=== PATIENT | female | born 1950 | race Caucasian/White ===

== ENCOUNTER 2018-09-20 09:50 | Day surgery (SDC) | payer BC, MEDICARE, OTHER, SELFPAY ==
[2018-09-20] VITALS (9 sets, daily range): BP systolic 134–172; BP diastolic 66–85; PULSE 64–70; RESP 16; TEMP 36.1–37.1; O2SAT 92–98; BMI 40.9
--- NOTE | 2018-09-20 | IMM_PTH ---
PATIENT: JULES ADORNO [place] [facility] [place][id number] AGE/SX: 68/F ROOM: RE09/20/[address]: Dr. Marjorie Alicia MD : 1950 BED: DIS: 09/20/2018 SPEC #: [id number] RECD: 09/22/18 14:00 STATUS: CORDELIA REQ #: [id number] RADHA: 09/20/18 00:[address]: Marjorie Alicia DEPT: IMMUNOHISTOCHEMISTRY RECD BY: Layla Corrales ENTERED: 09/22/18 14:02 SP TYPE: IMMUNO OTHR DR: Dr. Camille Crocker MD Tissues: A - Axillary lymph node, NOS B - Axillary lymph node, NOS C - Left breast, NOS Procedures: E-CAD (initial) CK7 (add) CK8 (add) E-CAD (add) Pankeratin (initial) PHYSICIAN & INSTITUTION [place] [id number] SPECIMEN INFORMATION: Tissue Source: A - Left sentinel lymph node, B - Left sentinel lymph node #2, C - Left breast mass Clinical Info: Malignant neoplasm upper-inner quadrant left breast Specimen Number: [id number] A1, B1, C3, C5, C6, C7 CPT code: 70268 x3, 94402 x13 METHODOLOGY: Deparaffinized sections of prefer/formalin-fixed tissue or PAP/DQ stained slides are incubated with monoclonal/polyclonal antibodies/oligonucleotide probes. Localization is made via biotin free immunoperoxidase method. Appropriate controls are performed and reacted as expected. Results on target cell population are indicated in the following table: RESULTS: ANTIBODY / CLONE RESULT Block A1 AE1-3 (AE1/AE3/PCK26) negative CK7 (OV-TL12/30) negative Block B1 AE1-3 (AE1/AE3/PCK26) negative CK7 (OV-TL12/30) negative Block C3 E-Cad (ECH-6) negative CK7 (OV-TL12/30) positive CK8 ([id number]) positive Block C5 E-Cad (ECH-6) negative CK7 (OV-TL12/30) positive CK8 (28pitqU38) positive Block C6 E-Cad (ECH-6) negative CK7 (OV-TL12/30) positive CK8 (32ookyQ93) positive Block C7 E-Cad (ECH-6) negative CK7 (OV-TL12/30) positive CK8 (96bdmfH47) positive These tests were developed and their performance characteristics determined by [facility]. They may not have been cleared or approved by the U.S. Food and Drug Administration. The FDA has determined that such clearance or approval is not necessary. INTERPRETATION: A. Left sentinel lymph node, biopsy: One lymph node, negative for metastatic carcinoma. B. Left sentinel lymph node #2, biopsy: One lymph node, negative for metastatic carcinoma. C. Left breast mass: Invasive lobular carcinoma. SJ:eddy 09/23/18
--- NOTE | 2018-09-20 11:14 | BI_ITS ---
SURGICAL BREAST SPECIMEN RADIOGRAPH CLINICAL: Document presence of mass in biopsy specimen. FINDINGS: Specimen shows presence of mass. Electronically Signed: Gus Alex MD at 15:38 EST Tel [phone], Service support , BI/Breast Biopsy Specimen
--- NOTE | 2018-09-20 12:00 | HP.PCM_ITS ---
History and Physical Date of Admission: 09/20/18 Yolanda Price 1950 ? ? REFERRING PHYSICIAN: Laura Simms MD ? CHIEF COMPLAINT: Mammogram Abnormality ? HPI: The patient is a 68 year old female presents with abnormal left breast mammograms and ultrasound. US findings of - 1.6 cm irregular lesion in the left breast 11:00. Patient denies palpable breast masses. Denies nipple dsicharge. Denies previous breast biopsies. She has noted lateral aspect of left breast with ache for years Mother had breast cancer dx'd at age 50 - Has no sisters. No ovarian cancer known in the family. ? Pathology for biopsy 09/09/18 - Invasive lobular carcinoma, nuclear grade 2. ? ? PAST MEDICAL HISTORY ? Acute gastritis without mention of hemorrhage ? ? Benign neoplasm of colon ? ? Chronic depressive personality disorder ? ? Contact dermatitis and other eczema, due to unspecified cause ? ? Diabetes mellitus with no complication (HCC) ? ? Diverticulosis of colon (without mention of hemorrhage) ? ? Duodenitis without mention of hemorrhage ? ? Dyspnea and respiratory abnormalities ? ? Esophageal reflux ? ? Esophagitis, unspecified ? ? Essential hypertension 02/08/2017 ? Gastro-esophageal reflux disease with esophagitis 05/04/2006 ? Internal hemorrhoids without mention of complication ? ? Internal hemorrhoids without mention of complication ? ? Mechanical ptosis of eyelid of both eyes 02/13/2016 ? Menorrhagia ? ? Myopia 01/09/2015 ? Obesity, unspecified ? ? Obstructive sleep apnea ? ? Other and unspecified hyperlipidemia ? ? Presbyopia 01/09/2015 ? Regular astigmatism 01/09/2015 ? RLS (restless legs syndrome) 11/18/2011 ? 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 Senile nuclear cataract 02/13/2016 ? Senile nuclear sclerosis 01/09/2015 ? Unspecified asthma(493.90) ? ? Unspecified hemorrhoids without mention of complication ? ? Unspecified hypothyroidism ? ? PAST SURGICAL HISTORY ? COLONOSCOP W/ OR W/O BRSH SPEC ? 07/20/07 ? COLONOSCOP W/ OR W/O BRSH SPEC ? 03/20/13 ? COLONOSCOPY ? 06/13/04 polyp ? D&C DIAG &/OR THERAP, NOT OB ? 08/26 ? EGD W/O OR W/BRUSH/WASH ? 06/13/04 ? EGD W/O OR W/BRUSH/WASH ? 03/20/13 ? PAST SURGICAL HISTORY OF ? 10/28/2006 novasure ? PHOTOREFRACTIVE KERATECOMY Left 03/05/2017 ? PTK Left ? ? REVISE MEDIAN N/CARPAL TUNNEL SURG ? Carpal tunnel, both hands ? SKIN LESION BIOPSY ? 01/2011? on tip of nose ? ? Current Outpatient Prescriptions: miSOPROStol (CYTOTEC) 200 mcg tablet 2 tablets as directed. Take 2 tabs the night before & 2 tabs the morning of the procedure - vaginally. diclofenac sodium (PENNSAID) 20 mg/gram /actuation(2 %) sopm Apply 1 Bottle to affected area twice daily. atorvastatin (LIPITOR) 20 mg tablet Take 0.5 tablets by mouth daily at bedtime. omeprazole (PRILOSEC) 20 mg capsule Take 1 capsule by mouth daily before breakfast. metFORMIN (GLUCOPHAGE) 500 mg tablet Take 1 tablet by mouth twice daily with meals. levothyroxine (SYNTHROID) 150 mcg tablet Take 1 tablet by mouth once daily. blood sugar diagnostic (ONETOUCH ULTRA TEST) test strip Test blood sugar(s) 2 times daily. Dx: Type 2 DM - Uncontrolled E11.65 Insulin: No Blood-Glucose Meter (ONETOUCH ULTRA2) monitoring kit 1 Each as neede d. One Touch Meter Kit Diagnosis: Type 2 DM - Uncontrolled E11.65 lancets (ONE TOUCH DELICA) 33 gauge misc Test blood sugar(s )2 daily. Dx: Type 2 DM - Uncontrolled E11.65 Insulin: No blood sugar diagnostic (ACCU-CHEK BELLA) test strip Use as instructed Lancets (ACCU-CHEK SOFTCLIX LANCETS) lancets Use as instructed PROPYLENE GLYCOL/PEG 400 (BLINK TEARS LUBRICATING) Eye Drops Use in both eyes. HYPROMELLOSE (SYSTANE GEL OPHTHALMIC) Use in eyes. cholecalciferol, Vitamin D3, (VITAMIN D3) 50,000 unit cap capsule Take 1 capsule by mouth once each week. Take 1 every 2 weeks magnesium oxide (MAG-OX) 400 mg tablet Take 1 tablet by mouth once daily. aspirin, enteric coated (ASPIRIN, ENTERIC COATED) 81 mg EC tablet Take 1 tablet by mouth once daily. Psyllium Husk (METAMUCIL) 0.52 g ORAL Cap as necessary ? ? ALLERGIES: Vicodin [Hydrocodone-Acetaminophen] ? 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 FAMILY HISTORY ? Lipids Father ? ? Cancer Father ? ? Skin Cancer ? other (Atrial Fibrillation [Other]) Father ? ? Hypertension Father ? ? Breast Cancer Mother ? ? age 50 ? Lipids Brother ? ? X-2 High Cholesterol ? Diabetes Paternal Grandmother ? ? ? REVIEW OF SYSTEMS: General: The patient denies fatigue, denies weight loss, NOTES weight gain, NOTES feeling hot, and denies feelings of cold. Eyes: The patient denies glaucoma, denies eye injury/surgery, wears glasses or contacts. Ear/Nose/Throat: The patient denies allergies, denies hayfever, denies ear infections, and denies bloody noses. Cardiovascular: The patient denies chest pain, denies heart disease, denies high blood pressure,denies cardiac stent, denies prior heart attack, denies irregular heart beat, NOTES high cholesterol, denies poor circulation, denies heart failure, other cardiac issues, denies claudication, denies cold feet, denies peripheral arterial stent. Respiratory: The patient denies tuberculosis, denies pneumonia, denies frequent cough, denies pulmonary embolism, denies shortness of breath, and denies coughing up blood. Gastrointestinal: The patient NOTES difficulty swallowing, NOTES acid reflux, denies ulcers, denies vomiting, denies jaundice/hepatitis, denies gallbladder problems, denies black or tarry stools, denies hemorrhoids, denies bleeding from rectum, denies diverticulitis, NOTES constipation, denies diarrhea, denies loss of stool control, and denies hernias. Kidney/Bladder: The patient denies kidney stones, denies urine infections, and denies bloody urine. Skin: The patient denies a history of skin cancer, denies bleeding/changing moles, and denies a history of skin rash. Neurologic: The patient denies a history of epilepsy/convulsions, NOTES headaches, denies head/spinal injuries, and denies stroke/TIA. Psychiatric: The patient denies psychiatric medications, denies depression, and denies voices, denies substance abuse. Endocrine: The patient NOTES thyroid disorders, NOTES diabetes, and denies hormonal problems. Hematologic: The patient denies a history of bruising, denies bleeding, and denies anemia, denies blood clots. Infections: The patient denies a history of measles and mumps, denies rheumatic fever, and denies sexually transmitted diseases. Musculoskeletal: The patient denies back pain/injury, denies back problems, denies sciatica, NOTES knee/foot trouble, NOTES arthritis, or denies gout. Obstetrical: menarche onset at age 11/12, , first at age 42, breast feeding 2m, BCP use initially 20s for 1-2 y, menopause late 50s, last menstrual period 09/14/2010 ? PHYSICAL EXAMINATION: General: The patient is 68 year old female, well nourished, well hydrated in no acute distress. The patient is oriented to time, place, and person. VITALS: Blood pressure 156/80, pulse 68, weight 113.4 kg (250 lb), Ht: 5'5 Body mass index is 41.6 kg/m?. Head ? Normocephalic. EOM intact with sclera clear and no icterus noted. Mouth with mucus membranes moist. Neck - supple with no jugular venous distention noted. Trachea is midline. No carotid bruits noted. No thyroid enlargement or thyroid nodules detected. No masses noted. Chest/breast ? no asymmetry of breasts noted, no suspicious skin lesions noted, no nipple discharge and both nipples everted, nodular dense breast tissue palpated bilaterally, no suspicious lesions palpated Lungs ? clear to auscultation. Normal breath sounds. No rales/rhonchi/wheezing noted. No labored breathing noted, such as retractions. . Heart ? normal S1 and S2 auscultated. No rubs/clicks/murmurs noted. Regular rate. Abdomen ? soft and benign. Normal bowel sounds. No abdominal bruits noted. Difficult to determine if any masses or organomegaly due to body habitus. Extremities ? no calf tenderness noted. Bilateral dependent swelling, No pitting edema noted. Skin ? normal skin integrity. Lymph ? no cervical adenopathy detected, no supraclavicular adenopathy detected, no axillary adenopathy detected Neurological ? gait normal, no focal deficits noted Psych ? calm and appropriate RADIOLOGIC STUDIES: As Noted ? ? IMPRESSION: newly diagnosed left breast cancer ? PLAN: I have discussed the above with the patient. I have given the patient options for initial surgical treatment. Options are the following: lumpectomy followed by radiation therapy versus mastectomy. I have described the procedures to the patient. I have described the advantages and disadvantages of the options, but I have told the patient that among the options, the survival rate for breast cancer is the same. I have told the patient that with all of the surgeries that a sentinel lymph node biopsy is required. I have described the procedure of sentinel lymph node biopsy to the patient. I have told the patient that if the biopsy is positive for metastatic disease, then radiation therapy to the axilla will be required. I have told the patient that adjuvant chemotherapy will be required should the lymph nodes reveal metastatic disease. I have told the patient the risks of surgery, including but not limited to: infection, bleeding, scar tissue, seroma and persistent seroma, lymph leak, injury to any blood vessels, injury to any nerves (particularly the long thoracic, the thoracodorsal, and the second intercostal brachial and the resultant sequelae), lymphedema, cosmetic deformity, dysthesias, wound infections, further surgery (especially if margins are not clear), complications of anesthesia, etc. ? the patient understands. She wishes to proceed with lumpectomy followed by radiation therapy. I have answered all the patient?s questions at this point to her satisfaction and she has no further questions. . ?
--- NOTE | 2018-09-20 13:00 | AXNB_PTH ---
PATIENT: JULES ADORNO [place]: [facility] [place] [facility] [place][id number] AGE/SX: 68/F ROOM: RE09/20/[address]: Dr. Marjorie Alicia MD : 1950 BED: DIS: 09/20/2018 SPEC #: [id number] RECD: 09/20/18 14:17 STATUS: CORDELIA REJavier #: [id number] RADHA: 09/20/18 13:[address]: Marjorie Alicia DEPT: SURGICAL PATHOLOGY RECD BY: Layla Corrales ENTERED: 09/21/18 09:03 SP TYPE: AX NODE BX OTHR DR: Dr. Camille Crocker MD Tissues: A - Axillary lymph node, NOS B - Axillary lymph node, NOS C - Left breast, NOS D - Left breast, NOS Procedures: Frozen Section (charge) [facility]zen [facility] Surgery Specimen Level IV Surgery Specimen Level V Frozen (no charge) HEADER OPERATION: Breast lumpectomy, SN with Neoprobe, needle localization, frozen section PRE-OP DIAGNOSIS: Malignant neoplasm of upper-inner quadrant of left breast, ER positive TISSUE SUBMITTED: A - Left sentinel node, FS at 1412, B - Left sentinel node #2, FS at 1425, C - Left breast mass, long stitch lateral, short stitch superior, two short stitches medial sent to mammography then to lab at 1519, D - Left breast tissue sent to mammography then lab at 1619 FROZEN SECTION DIAGNOSIS A. Left sentinel lymph node, biopsy: One lymph node, negative for metastatic carcinoma. B. Left sentinel lymph node #2, biopsy: One lymph node, negative for metastatic carcinoma. C. Left breast mass: Biopsy cavity changes. No carcinoma noted. Case has been reviewed in consultation with Dr. Mauricio who concurs with the above diagnosis. IDC:AM BRITTNI:eddy 09/20/18 MICROSCOPIC DIAGNOSIS A. Left sentinel lymph node, biopsy: One lymph node, negative for metastatic carcinoma. See comment. B. Left sentinel lymph node #2, biopsy: One lymph node, negative for metastatic carcinoma. See comment. C. Left breast mass, lumpectomy with needle localization: Invasive lobular carcinoma. See cancer summary below. D. Left breast: Negative for carcinoma. SJ:eddy 09/23/18 INVASIVE BREAST CANCER SUMMARY: Specimen - partial breast Procedure - excision with wire-guided localization Lymph node sampling - sentinel lymph nodes Specimen integrity - multiple designated specimens (main excision and additional left breast tissue) Specimen size - - specimen C, lumpectomy - 9 x 7 x 5 cm - additional breast tissue 4.5 x 3 x 1 cm Specimen laterality - left Tumor site - upper inner quadrant as per clinical information Tumor size - 1.5 cm in greatest dimension (measured microscopically) . See comment. Tumor focality - single focus of invasive carcinoma Macroscopic and Microscopic extent of tumor: Skin - skin is not present. Nipple - not applicable Skeletal muscle - no skeletal muscle present. Ductal carcinoma in situ (DCIS) - no ductal carcinoma in situ present. Lobular carcinoma in situ (LCIS) - not identified Histologic type of invasive carcinoma - invasive and lobular carcinoma Histologic Grade (Marivel grade): Glandular/tubular differentiation - score 3 Nuclear pleomorphism - score 1 Mitotic count - score 1 Overall grade - 1 (score of 5) Margins - Margins uninvolved by invasive carcinoma. Invasive carcinoma is 0.3 cm away from anterior margin and 0.2 cm away from the medial margin. Treatment effect: Response to presurgical (neoadjuvant) therapy - no known presurgical therapy. Lymph-Vascular invasion - not identified Dermal lymph-vascular invasion - not applicable Lymph nodes: Number of sentinel lymph nodes examined - 2 Total number of lymph nodes examined (sentinel and nonsentinel) - 2 Number of lymph nodes with macrometastases, micrometastases and isolated tumor cells - 0 Method of evaluation of sentinel lymph nodes - H & E, multiple levels and IHC. Distant metastasis - not applicable Additional pathologic findings - changes consistent with previous biopsy site. Focal atypical lobular hyperplasia. Ancillary studies - previously performed on [facility] specimen ([id number]) ER - positive (>95%, strong) MN - positive (90%, moderate) Her2 jacey - negative (1+) Microcalcifications - not identified Clinical history - Please make reference to previous specimen from [facility] ([id number]) right breast, needle core biopsy with diagnosis of invasive lobular carcinoma. PATHOLOGIC STAGE: pT1c pN0(sn) Mx The above summary is in compliance with [employer] (CAP) Cancer Protocols Checklist and [place] Joint Committee on Cancer (AJCC), Staging Manual, 8th Ed. COMMENT A & B. The lymph nodes are negative for metastatic carcinoma on multiple H & E levels and immunohistochemical stains for cytokeratins ([id number]). C - Immunohistochemistry ([id number]) supports the above diagnosis. The tumor is smaller than the grossly identified indurated area. Grossly indentified also consists of biopsy-related changes. As per clinical information from Dr. Alicia, the tumor measured 1.5 cm in greatest dimension (ultrasound). This case was discussed with Dr. Alicia on 09/23/18 Case has been reviewed in consultation with Dr. Mauricio who concurs with the above diagnosis. IDC:AM MICROSCOPIC DESCRIPTION Slides are reviewed. GROSS DESCRIPTION A - Received fresh for frozen section diagnosis labeled with the patient's name is a specimen designated left sentinel lymph node. The specimen consists of a piece of farnsworth-yellow adipose tissue measuring 3 x 3 x 1 cm. One lymph node is identified measuring 2.5 cm in greatest dimension. The entire specimen is submitted in two cassettes as follows: 1 - frozen section, one bisected lymph node, 2 - rest of the specimen. / : 09/20/18 B - Received fresh for frozen section diagnosis labeled with the patient's name is a specimen designated left sentinel lymph node #2. The specimen consists of a piece of yellow adipose tissue measuring 2 x 2 x 1 cm. One nodule consistent with lymph node is identified measuring 1.5 cm in greatest dimension. The entire specimen is submitted in two cassettes as follows: 1 - frozen section, one bisected lymph node, 2 - rest of the specimen. / : 09/20/18 C - Received fresh for intraoperative consultation/frozen section diagnosis labeled with the patient's name is a specimen designated left breast mass. The specimen consists of a lumpectomy specimen measuring 9 x 7 x 5 cm and weighing 112.3 gm and needle localization. The specimen is oriented as long stitch - lateral, short stitch - superior, two short stitches - medial, wire coming out anteriorly. The specimen is inked as follows: anterior - yellow, posterior - black, medial - red, lateral - orange, superior - blue, inferior - green. Serial sections reveal a farnsworth, indurated area with central biopsy cavity measuring 2.5 x 1.5 x 1.5 cm. This area is 0.3 cm away from anterior margin and 0.2 cm away from the medial margin. Four frozen sections are done from this indurated area and submitted in cassettes 1-4. More dictation will follow after overnight fixation. / SJ:eddy 09/20/18 More sections are submitted as follows: 5-7 - more sections of indurated area, 8 & 9 - perpendicular margins, 10-12 - community engagement representative sections from the other areas. / SJ:eddy 09/21/18 D - Received fresh for intraoperative consultation labeled with the patient's name is a specimen designated left breast. The specimen consists of a piece of yellow fibroadipose tissue measuring 4.5 x 3 x 1 cm. No orientation is provided. One surface of the specimen is inked black and opposite surface inked blue. Serial sections do not reveal any mass lesion. This information is conveyed to the surgeon intraoperatively. The entire specimen is submitted in six cassettes. Sections will be submitted after additional fixation. / SJ:eddy 09/20/18 TC:0 CPT: 56103 x3, 01838, 97645 x3, 33981 x3, 16226 ADDENDUM ADDENDUM ADDENDUM ADDENDUM ADDENDUM ADDENDUM ADDENDUM ADDENDUM 10/26/2018 14:11 ADDENDUM 10/26/2018 14:11 ADDENDUM 10/26/2018 14:11 ADDENDUM 10/26/2018 14:11 ADDENDUM 10/26/2018 14:11 An order for Oncotype testing was received from Dr. Dumont. This necessitated case review, block and slide selection by pathologist at [facility]. Breast Cancer Recurrence Score = 13 Results of the complete Oncotype testing (fluid Operations report) are viewable in EMR under: Reports - Pathology - Lab Pathology Report, Scanned.
[2018-09-20] MEDS: Cefazolin 2 GM in 0.9% Normal Saline 100 ML IV (13:27)
--- NOTE | 2018-09-20 13:28 | OP.PN_ITS ---
Immediate Post-Op Note Date of Procedure: 09/20/18 Primary Surgeon/Physician: Marjorie Alicia promotional marketing analyst: Leonila Alicea Pre-Operative Diagnosis: left breast cancer Post-Operative Diagnosis: same Surgery/Procedure Performed:: left breast lumpectomy via wire localization, left axillary sentinel lymph node biopsy via blue and radioactive dye localization Description of Surgical Findings:: 2 out of 2 lymph nodes negative for metastatic disease, primary tumor could not be identified Estimated Blood Loss: 50 ml Specimen's removed: left breast lumpectomy tissue, left axillary lymph dwain tissue Type of Anesthesia:: General ASA Class: ASA3 Severe Disease - Admit VTE Documentation VTE Present on Admission: Yes VTE Mechan Device Prophylaxis: SCD's
--- NOTE | 2018-09-20 13:28 | OP.PCM_ITS ---
Report of Operation Date of Procedure: 09/20/18 Pre-Operative Diagnosis: left breast cancer Post-Operative Diagnosis: same Surgery/Procedure Performed:: left breast lumpectomy via wire localization, left axillary sentinel lymph node biopsy via blue and radioactive dye localization Description of Surgical Findings:: 2 out of 2 lymph nodes negative for metastatic disease, primary tumor could not be identified in lumpectomy specimen by frozen section and marker clip not in specimen clerical production worker: Leonila Alicea Type of Anesthesia:: General Anesthesiologist: Chelsie Smith Specimen's removed: left breast lumpectomy tissue, left axillary lymph dwain tissue Estimated Blood Loss (mL): 50 ml Fluids Replaced: see anesthesia note Description of Procedure: After informed consent was given, the patient was brought into the Breast Stereotactic Radiology suite. Appropriate time out protocol was followed. She was then placed in the prone position on the Hussein stereotactic table. The patient?s left breast was placed in the opening at the head of the table. A immigration investigator compression mammogram was then obtained in the CC view. The marker clip that was previously placed was identified. Stereo pictures of the lesion were then taken for XYZ coordinates. The Kopans needle was then positioned where it would be entering into the patient?s breast. The skin at this site was then cleansed with a surgical skin preparation. The skin and subcutaneous tissues at this site were then infiltrated with 1% xylocaine. The Kopans needle was then positioned into the patient?s breast at the proper coordinates of depth. A immigration investigator film was obtained which revealed the wire in proper position. The wire was then secured to the patient's skin. Mammograms were then taken in the CC and MLO view which would then be used in the OR The patient tolerated this portion of the procedure well and was brought to the AC awaiting surgery in the OR. The patient was then brought to the OR and placed in the supine position on the operating room table. Appropriate time out protocol was follwed. She was then placed under general anesthesia. 2 cc of lymphozurin blue dye diluted 50:50 was then injected into the periareolar area of the left breast and around the biopsy cavity with a 25 g needle. Gentle massage was then done for a few minutes. The patient's upper chest, left breast, and neck area was then prepped with a sterile surgical skin preparation and appropriate sterile surgical drapes were placed. The Neoprobe device was brought into the operative field. The 10 second reading over the tumor site was in the tens of thousands. The 10 second reading over the liver was 0. A skin incision was made in the inferior portion of the hair bearing area of the left axilla after injection of local anesthetic. It was carried through to the subcutaneous tissues using electrocautery. Any hemorrhage was controlled with electrocautery. A Weitlaner retractor was used for increased operative exposure. The blue lymphatic vessels were then followed by blunt dissection until blue colored lymph dwain tissue was identified. This tissue was from the surrounding tissue by blunt dissection and the vascular pedicles ligated with hemoclips. The 10 second reading of the lymph dwain tissue was 240. The lymph nodes were then forwarded to pathology for frozen section. Pathology revealed that 2 out of 2 lymph nodes were negative for cancer. The 10 second reading in the axilla was 4. The axillary cavity was carefully examined. No further suspicious lesion were noted. No further blue lymph tissue was noted. Char was applied in the axilla. The deep fascia was approximated with 2-0 vicryl suture. The subdermal tissue was reapproximated with 3-0 vicryl suture. The skin was reapproximated with running 4-0 monocryl in a subcuticular fashion. The left breast lumpectomy was then done. A wire had already been placed in the stereotactic biopsy room in the radiology department as described above. The skin and subcutaneous tissues at the site of the breast lesion was then infiltrated with local anesthetic. A transverse skin incision was then made with a 15 blade scalpel in the upper aspect of the left breast and carried down through to the subcutaneous tissues. Hemostasis was controlled with electrocautery. The wire was then palpated. The breast tissue surrounding the wire was then carefully palpated out and from the surrounding tissues using electrocautery. The breast tissue with the wire embedded in it, was then forwarded to the radiology department, where a specimen mammogram revealed that no marker clip was present. The breast tissue was then forwarded to pathology for analysis. Pathology review revealed a hematoma cavity, but no tumor could be identified. Additional breast tissue was obtained, and this showed no evidence of tumor. The wound cavity was carefully examined. No further suspicious tissue was palpated or visualized. Hemostasis was carefully controlled with electrocautery. The deep tissues were reapproximated using 2-0 vicryl suture. The subdermal tissues were then approximated with vicryl suture. The incision was then reapproximated close using running monocryl suture. Cavilon and steristrips were applied to reinforce skin closures at both sites. Opsite dressing was applied to both sites. The patient was then brought to the Recovery Room in stable condition. - Complications none noted - Admit VTE Documentation VTE Present on Admission: Yes VTE Mechan Device Prophylaxis: SCD's
[2018-09-20] MEDS: Isosulfan Blue 1% 5 ML Vial (13:40)
[2018-09-20] MEDS: Bupiv/Epi 0.5% Mpf 30 ML Vial (13:50)
--- NOTE | 2018-09-20 17:06 | PCM.DC.BS ---
Discharge Diet: No Restrictions Discharge Activity: Return to Normal Activity, May not drive while taking narcotic pain medications. Lifting Restrictions: no lifting with left arm greater than 5 pounds until further notice Call your doctor if your incision/area has: Continuous Slow Oozing, Foul Smelling Discharge Call your doctor if you observe: Fever of 101 or Higher Additional Dressing/Incision Instructions:: May shower. Leave dressings in place. Do not soak - no tub baths/swimming Allergies/Adverse Reactions: Allergies hydrocodone [From Vicodin] Adverse Reaction (Verified 09/19/18 09:37) Other Medications to take at Discharge Aspirin E.C. [Ecotrin] 81 mg PO DAILY@0800 09/19/18 Atorvastatin Calcium [Lipitor] 20 mg PO QHS 09/19/18 Ergocalciferol [Vitamin D] 50,000 unit PO Q14D 09/19/18 Levothyroxine Sodium [Synthroid] 150 mcg PO DAILY 09/19/18 Magnesium Oxide 400 mg PO DAILY 09/19/18 Metformin(XR) [Glucophage Xr] 500 mg PO BID 09/19/18 Omeprazole [Prilosec] 20 mg PO DAILY 09/19/18 Propylene Glycol/Peg 400 [Systane Gel Eye Drops] 10 ml OP QHS 09/19/18 Psyllium Husk (with Sugar) [Metamucil Packet] 3.4 gm PO QHS 09/19/18 Vit C/E/Zn/Coppr/Lutein/Zeaxan [Preservision Areds 2 Softgel] 2 each PO BID 09/19/18 Oxycodone [Oxyir] 5 mg PO Q4H PRN PRN 5 Days #20 tab 09/20/18 The following prescriptions were given: Oxycodone [Oxyir] 5 mg PO Q4H PRN PRN 5 Days #20 tab PRN Reason: Pain Primary Care Physician: Camille Crocker MD [Primary Care Provider] - Please Follow Up With: Marjorie Alicia MD - When: to be seen on Sep 26 at 10:00am, thank you
[2018-09-20] MEDS: oxyCODONE 5 MG Tablet PO (17:51)
== END 2018-09-20 19:35 | disposition home or self-care (01) ==
LOC: SDC 10:02 → AC 10:25
PROVIDERS: Family Provider Internal Medicine; PCP Internal Medicine; Referring Provider Surgery; Visit Provider Surgery
PROC: (CPT 19301; principal; 2018-09-20 12:45)
DX: C50.212 Malignant neoplasm of upper-inner quadrant of left female breast (principal); E11.9 Type 2 diabetes mellitus without complications; I10 Essential (primary) hypertension; E03.9 Hypothyroidism, unspecified; E78.49 Other hyperlipidemia; G47.33 Obstructive sleep apnea (adult) (pediatric); G25.81 Restless legs syndrome; J45.909 Unspecified asthma, uncomplicated; K21.0 Gastro-esophageal reflux disease with esophagitis; E66.9 Obesity, unspecified; Z78.0 Asymptomatic menopausal state; F34.1 Dysthymic disorder; Z79.82 Long term (current) use of aspirin; Z79.4 Long term (current) use of insulin; Z79.899 Other long term (current) drug therapy; Z80.3 Family history of malignant neoplasm of breast
CPT/HCPCS: 00400; 19301; 38525; 38900; 19281; 76098; 88305; 88307; 88331; 88332; 88341; 88342; J7120; J2405; J3490; Q9968

== ENCOUNTER → 2018-09-20 | Day surgery (SDC) | payer BC, SELFPAY ==
[2018-09-20 10:30] VITALS: BMI 40.9
--- NOTE | 2018-09-20 10:30 | NM_ITS ---
PROCEDURE: NUCLEAR MEDICINE Injection Clio Node - LEFT breast(s). REASON FOR EXAM: Female, 68 years old. Left breast cancer. TECHNIQUE: Clio node localization using radionuclide methods of the LEFT breast(s) was performed following subcutaneous administration of 1.1 mCi of of sulfur colloid Tc-99m. FINDINGS: 1.1 mCi of technetium labeled sulfur colloid was injected in 4 equal aliquots at the biopsy site in the superior midportion of the breast. NM/Lymph Node Injection Only IMPRESSION: Subcutaneous injection of 1.1 mCi of technetium labeled sulfur colloid for sentinel node imaging. Electronically Signed: Gus Alex MD at 11:22 EST Tel [phone], Service support ,
[2018-09-20 10:56] LABS: Bedside Glucose 120 mg/dL (70-110)
[2018-09-20 17:41] LABS: Bedside Glucose 164 mg/dL (70-110)
[2018-09-20 18:36] LABS: Bedside Glucose 184 mg/dL (70-110)
== END | disposition home or self-care (01) ==
LOC: NM 01-17 10:16
PROVIDERS: Family Provider Internal Medicine; PCP Internal Medicine; Referring Provider Surgery; Visit Provider Surgery
DX: C50.919 Malignant neoplasm of unspecified site of unspecified female breast (principal)
CPT/HCPCS: 38792; 82962; A9541